=== PATIENT | female | born 1970 | race Two or more races ===

== ENCOUNTER 2020-12-03 07:20 | Emergency (ER) | payer OTHER ==
[~2020-12-03] VITALS: Ht 157.5 cm; Wt 72.6 kg
[2020-12-03 07:22] VITALS: BP 148/93
[2020-12-03] MEDS ORDERED: TETANUS-DIPTH-ACEL PERTUSSIS 0.5ML SYR Tdap IM ONE (07:45)
== END 2020-12-03 08:09 | disposition home or self-care (01) ==
LOC: ER 07:20
DX: S51.031A Puncture wound without foreign body of right elbow, initial encounter (principal); X58.XXXA Exposure to other specified factors, initial encounter; Y93.89 Activity, other specified; Y92.89 Other specified places as the place of occurrence of the external cause; Y99.8 Other external cause status
CPT/HCPCS: 90471; 90715